=== PATIENT | female | born 1960 | race Caucasian/White ===

== ENCOUNTER 2024-02-03 11:11 | Inpatient (IN) | payer MEDICARE, OTHER ==
[2024-02-03] MEDS ORDERED: Iopamidol 300 61% 100 ML VIAL FS ONE (11:13)
[2024-02-03] MEDS ORDERED: cefTRIAXone (ROCEPHIN) 2 GM VIAL ONE (12:08)
[2024-02-03 12:13] LABS: Hematocrit 34.4 % (34.9-44.5); Hemoglobin 10.4 g/dL (12.0-15.5); Mean Corpuscular HGB CONC 30.2 g/dL (32.0-36.0); Mean Corpuscular Hemoglobin 21.9 pg (27.0-33.0); Mean Corpuscular Volume 72.6 fL (81.6-98.3); Mean Platelet Volume 9.5 fL (7.4-10.4); Platelet Count 515 10x3/uL (150-450); RBC Distribution Width 17.3 % (11.5-14.5); Red Blood Cell (RBC) Count 4.74 10x6/uL (3.90-5.03); White Blood Cell (WBC) Count 27.2 10x3/uL (3.5-10.5)
[2024-02-03 12:29] LABS: ALT (SGPT) 13 U/L (8-55); AST (SGOT) 19 U/L (5-34); Albumin 3.4 g/dL (3.4-4.8); Alkaline Phosphatase 101 U/L (40-110); Anion Gap 18 mmol/L (10-20); BUN (Urea Nitrogen) 26 mg/dL (9.8-20.1); Bilirubin, Total 0.5 mg/dL (0.2-1.2); Calc. Creatinine Clearance 0 mL/min (70-130); Calcium 9.6 mg/dL (7.8-10.44); Carbon Dioxide 21 mmol/L (23-31); Chloride 96 mmol/L (98-107); Estimated GFR 73; Globulin 4.8 g/dL (2.4-3.5); Glucose 132 mg/dL (80-115); Potassium 4.4 mmol/L (3.5-5.1); Protein, Total 8.2 g/dL (5.8-8.1); Sodium 131 mmol/L (136-145)
[2024-02-03 12:47] LABS: Bilirubin Neg (Negative); Blood, Urine 150 (Negative); Glucose, Urine (Dipstick) Normal (Negative); Ketone, Urine 5 mg/dL (Negative); Leukocyte 25 (Negative); Nitrite Negative (Negative); Protein, Urine (Dipstick) 100 mg/dl (Neg-Trace); Specific Gravity, Urine 1.025 (1.005-1.030)
[2024-02-03 13:21] LABS: MDiff Complete? YES
[2024-02-03 13:22] LABS: CAUTI Indications for Culture Pelvic or flank pain; Clarity Cloudy (Clear); RBC/HPF Greater than 50 HPF (0-3); Squamous Epithelial Greater than 50 HPF (0-3)
[2024-02-03 13:23] LABS: Bacteria/HPF 1+ HPF (None Seen); Mucous/LPF 3+ LPF (<2+)
[2024-02-03 13:23] LABS: Band 2 % (5-11); Lymphocytes 6 % (21-51); Monocytes 4 % (0-10); Neutrophil 88 % (42-75)
[2024-02-03 13:24] LABS: Urine Culture Reflex Yes Yes
[2024-02-03 13:24] LABS: Anisocytosis SLIGHT = 6-15 cells (100X) (0-5/hpf); Microcytosis SLIGHT = 6-15 cells (100X) (0-5/hpf)
[2024-02-03 13:25] LABS: Platelet Adequacy Comment Appears Increased
[2024-02-03] MEDS ORDERED: Ondansetron PF 4 MG/2 ML Vial ONE (14:32)
[2024-02-03] MEDS ORDERED: HYDROmorphone 0.5 MG/0.5 ML SYRINGE ONE ×2 (14:32→20:19)
[2024-02-03] MEDS ORDERED: Piperacillin/Tazobactam 3.375 GM VIAL ONE (15:02)
[2024-02-03] MEDS ORDERED: Fentanyl 250 MCG/5 ML VIAL ONE ×2 (16:14→20:26)
[2024-02-03] MEDS ORDERED: PROPOFOL 20 ML ONE (16:14)
[2024-02-03] MEDS ORDERED: Lidocaine 1% PF 5 ML VIAL ONE (16:15)
[2024-02-03] MEDS ORDERED: SUCCINYLCHOLINE/SOD CL,ISO/PF 200 MG/10 ML SYRINGE FS ONE ×2 (16:17→19:49)
[2024-02-03] MEDS ORDERED: Rocuronium Bromide 10 MG/ML (10ML VIAL) ONE (16:17)
[2024-02-03] MEDS ORDERED: Albumin 5% 500 ML ONE (16:20)
[2024-02-03] MEDS ORDERED: fentaNYL 50 mcg/mL 1 mL Vial ONE (19:07)
[2024-02-03] MEDS ORDERED: SUGAMMADEX SODIUM 200 MG/2 ML VIAL ONE (19:40)
[2024-02-03] MEDS ORDERED: Sodium Chloride For Inhalation 0.9% 3 ML NEB ONE (20:13)
[2024-02-03] MEDS ORDERED: Racepinephrine 2.25% 0.5 ML NEB ONE (20:13)
[2024-02-03] MEDS: Ipratropium/Albuterol 3 ML NEB NEB PRN (20:15)
[2024-02-03] MEDS ORDERED: hydrALAZINE 20 MG/ML VIAL SLOW IVP PRN (20:16)
[2024-02-03] MEDS ORDERED: Ondansetron PF 4 MG/2 ML Vial IVP PRN ×2 (20:16→22:06)
[2024-02-03] MEDS ORDERED: Ondansetron ODT 4 MG TAB PO PRN (20:16)
[2024-02-03] MEDS ORDERED: Dexamethasone 4 mg/ml Vial ONE (20:29)
[2024-02-03] MEDS ORDERED: HYDROmorphone 2 MG/ML VIAL SLOW IVP PRN (20:36)
[2024-02-03] MEDS ORDERED: Promethazine HCl 25 MG/ML VIAL IM PRN ×2 (20:36→22:06)
[2024-02-03] MEDS ORDERED: Ondansetron HCl/PF 4 MG/2 ML Vial IVP PRN (20:36)
[2024-02-03] MEDS ORDERED: Ipratropium/Albuterol 3 ML NEB NEB PRN (21:13)
[2024-02-03] MEDS ORDERED: Naloxone HCl 0.4 mg/ml Vial IV PRN (22:06)
[2024-02-03] MEDS ORDERED: diphenhydrAMINE 25 MG CAP PO PRN (22:06)
[2024-02-03] MEDS ORDERED: diphenhydrAMINE 50 MG/ML VIAL IM PRN (22:06)
[2024-02-03] MEDS ORDERED: diphenhydrAMINE 50 MG/ML VIAL IVP PRN (22:06)
[2024-02-03] MEDS ORDERED: FENTANYL 500 MCG/10 ML VIAL 2,000 MCG in Sodium Chloride 0.9% 60 ML IV PRN (22:06)
[2024-02-03] MEDS ORDERED: FENTANYL IV PRN (22:15)
[2024-02-03] MEDS ORDERED: SODIUM CHLORIDE 0.9% IV PRN (22:15)
[2024-02-03] MEDS ORDERED: Communication Order-Pharmacy FS SCH (22:15)
[2024-02-03] MEDS: Sodium Chloride 0.9% 1,000 ML IV SCH (23:16)
[2024-02-04] MEDS: Etomidate 40 MG (20 mL) VIAL ONE (00:58)
[2024-02-04] MEDS: Etomidate 40 MG (20 mL) VIAL FS SCH (00:58)
[2024-02-04] MEDS: Ketorolac Tromethamine 30 MG (1 mL) VIAL IVP SCH (01:15)
[2024-02-04] MEDS: Piperacillin/Tazobactam 3.375 GM in Sodium Chloride 0.9% 100 ML IVPB SCH ×2 (01:15→02:03)
[2024-02-04] MEDS: Pantoprazole 40 MG VIAL IVP SCH ×3 (01:16→09:51)
[2024-02-04] MEDS: Enoxaparin 40 MG (0.4 mL) SYRINGE SC SCH ×2 (01:16→02:02)
[2024-02-04 06:45] LABS: #Basophils 0.01 10x3/uL (0.0-0.2); #Monocytes 0.29 10x3/uL (0.0-1.1); #Neutrophils 10.73 10x3/uL (1.5-8.4); %Basophils 0.1 % (0.0-2.0); %Lymphocytes 4.2 % (18.0-47.0); %Monocytes 2.5 % (0.0-10.0); %Neutrophils 92.9 % (40.0-75.0); Hematocrit 25.9 % (34.9-44.5); Hemoglobin 7.9 g/dL (12.0-15.5); Mean Corpuscular HGB CONC 30.5 g/dL (32.0-36.0); Mean Corpuscular Hemoglobin 22.4 pg (27.0-33.0); Mean Corpuscular Volume 73.4 fL (81.6-98.3); Mean Platelet Volume 9.3 fL (7.4-10.4); Platelet Count 347 10x3/uL (150-450); RBC Distribution Width 17.5 % (11.5-14.5); Red Blood Cell (RBC) Count 3.53 10x6/uL (3.90-5.03); White Blood Cell (WBC) Count 11.5 10x3/uL (3.5-10.5)
[2024-02-04 07:41] LABS: ALT (SGPT) 13 U/L (8-55); AST (SGOT) 22 U/L (5-34); Albumin 2.5 g/dL (3.4-4.8); Alkaline Phosphatase 68 U/L (40-110); Anion Gap 13 mmol/L (10-20); BUN (Urea Nitrogen) 18 mg/dL (9.8-20.1); Bilirubin, Total 0.3 mg/dL (0.2-1.2); Calc. Creatinine Clearance 80 mL/min (70-130); Calcium 7.8 mg/dL (7.8-10.44); Carbon Dioxide 20 mmol/L (23-31); Chloride 108 mmol/L (98-107); Estimated GFR 100; Globulin 3.1 g/dL (2.4-3.5); Glucose 120 mg/dL (80-115); Potassium 4.2 mmol/L (3.5-5.1); Protein, Total 5.6 g/dL (5.8-8.1); Sodium 137 mmol/L (136-145)
[2024-02-04 12:27] LABS: #Monocytes 0.43 10x3/uL (0.0-1.1); #Neutrophils 10.42 10x3/uL (1.5-8.4); %Lymphocytes 5.5 % (18.0-47.0); %Monocytes 3.7 % (0.0-10.0); %Neutrophils 90.5 % (40.0-75.0); Hematocrit 24.8 % (34.9-44.5); Hemoglobin 7.3 g/dL (12.0-15.5); Mean Corpuscular HGB CONC 29.4 g/dL (32.0-36.0); Mean Corpuscular Hemoglobin 21.9 pg (27.0-33.0); Mean Corpuscular Volume 74.3 fL (81.6-98.3); Mean Platelet Volume 8.7 fL (7.4-10.4); Platelet Count 295 10x3/uL (150-450); RBC Distribution Width 17.5 % (11.5-14.5); Red Blood Cell (RBC) Count 3.34 10x6/uL (3.90-5.03); White Blood Cell (WBC) Count 11.5 10x3/uL (3.5-10.5)
[2024-02-04] MEDS: Acetaminophen 500 MG TAB PO SCH (17:16)
[2024-02-04] MEDS: Sodium Chloride 0.9% 1,000 ML IV SCH (17:16)
[2024-02-05 04:47] LABS: #Basophils 0.01 10x3/uL (0.0-0.2); #Monocytes 0.55 10x3/uL (0.0-1.1); #Neutrophils 9.88 10x3/uL (1.5-8.4); %Basophils 0.1 % (0.0-2.0); %Lymphocytes 8.6 % (18.0-47.0); %Monocytes 4.8 % (0.0-10.0); Hematocrit 23.4 % (34.9-44.5); Mean Corpuscular HGB CONC 29.9 g/dL (32.0-36.0); Mean Corpuscular Hemoglobin 22.2 pg (27.0-33.0); Mean Corpuscular Volume 74.3 fL (81.6-98.3); Mean Platelet Volume 9.1 fL (7.4-10.4); Platelet Count 325 10x3/uL (150-450); RBC Distribution Width 17.7 % (11.5-14.5); Red Blood Cell (RBC) Count 3.15 10x6/uL (3.90-5.03); White Blood Cell (WBC) Count 11.5 10x3/uL (3.5-10.5)
[2024-02-05 05:07] LABS: Anion Gap 12 mmol/L (10-20); BUN (Urea Nitrogen) 19 mg/dL (9.8-20.1); Calc. Creatinine Clearance 79 mL/min (70-130); Carbon Dioxide 21 mmol/L (23-31); Chloride 110 mmol/L (98-107); Potassium 3.9 mmol/L (3.5-5.1); Sodium 139 mmol/L (136-145)
[2024-02-05 05:08] LABS: ALT (SGPT) 12 U/L (8-55); AST (SGOT) 19 U/L (5-34); Albumin 2.4 g/dL (3.4-4.8); Alkaline Phosphatase 58 U/L (40-110); Bilirubin, Total 0.2 mg/dL (0.2-1.2); Calcium 8.2 mg/dL (7.8-10.44); Estimated GFR 99; Globulin 3.3 g/dL (2.4-3.5); Glucose 94 mg/dL (80-115); Protein, Total 5.7 g/dL (5.8-8.1)
[2024-02-05] MEDS: Multivitamin W/ Minerals 1 TAB PO SCH (10:09)
[2024-02-05] MEDS: Nicotine 21 MG PATCH TD SCH (10:09)
[2024-02-05] MEDS ORDERED: traMADol HCl 50 MG TAB PO PRN (14:43)
[2024-02-05] MEDS ORDERED: Loratadine 10 MG TAB PO PRN (16:06)
[2024-02-05] MEDS ORDERED: Pseudoephedrine HCl 30 MG TAB PO PRN (16:07)
[2024-02-05] MEDS: Ipratropium/Albuterol 3 ML NEB NEB SCH (19:44)
[2024-02-06 03:52] LABS: #Basophils 0.01 10x3/uL (0.0-0.2); #Eosinphils 0.08 10x3/uL (0.0-0.5); #Monocytes 0.54 10x3/uL (0.0-1.1); #Neutrophils 6.63 10x3/uL (1.5-8.4); %Basophils 0.1 % (0.0-2.0); %Eosinophils 0.9 % (0.0-6.0); %Lymphocytes 19.3 % (18.0-47.0); %Neutrophils 73.3 % (40.0-75.0); Hematocrit 24.9 % (34.9-44.5); Hemoglobin 7.3 g/dL (12.0-15.5); Mean Corpuscular HGB CONC 29.3 g/dL (32.0-36.0); Mean Corpuscular Hemoglobin 21.7 pg (27.0-33.0); Mean Corpuscular Volume 74.1 fL (81.6-98.3); Mean Platelet Volume 8.7 fL (7.4-10.4); Platelet Count 328 10x3/uL (150-450); RBC Distribution Width 17.3 % (11.5-14.5); Red Blood Cell (RBC) Count 3.36 10x6/uL (3.90-5.03); White Blood Cell (WBC) Count 9.1 10x3/uL (3.5-10.5)
[2024-02-06] MEDS ORDERED: Pseudoephedrine HCl 30 MG TAB PO PRN (08:36)
[2024-02-06] MEDS: Pantoprazole DR 40 MG TAB PO SCH (09:18)
[2024-02-06] MEDS ORDERED: Ibuprofen 200 MG TAB PO PRN (12:00)
[2024-02-06] MEDS: Amoxicillin/Potassium Clav 875 MG TAB PO SCH ×2 (12:03→15:30)
[2024-02-06] MEDS: Polyethylene Glycol 3350 17 GM Packet PO SCH (12:57)
[2024-02-06] MEDS: Albuterol 2.5 MG (3 mL) NEB NEB PRN (14:40)
[2024-02-06 16:39] VITALS: BP 168/82; TEMP 98
[2024-02-06] MEDS ORDERED: Amoxicillin/Potassium Clav 875 MG TAB PO SCH (21:00)
[2024-02-07] MEDS ORDERED: Multivit, Therapeutic 1 TAB PO SCH (09:00)
[2024-02-07] MEDS ORDERED: Metamucil PACK PO SCH (09:00)
== END 2024-02-06 16:30 | disposition home or self-care (01) | DRG 330 ==
LOC: CSHERS 11:11 → CSHSDC/OP 17:45 → CSHTELE 21:11
PROVIDERS: ADMIT Specialist; ATTEND Specialist
PROC: 0DTF0ZZ Resection of Right Large Intestine, Open Approach (ICD-10-PCS; principal; 2024-02-03)
PROC: 0WBF0ZZ Excision of Abdominal Wall, Open Approach (ICD-10-PCS; 2024-02-03)
DX: C18.0 Malignant neoplasm of cecum (principal); K56.609 Unspecified intestinal obstruction, unspecified as to partial versus complete obstruction; K37 Unspecified appendicitis; F17.210 Nicotine dependence, cigarettes, uncomplicated; E86.0 Dehydration; D64.9 Anemia, unspecified; K63.89 Other specified diseases of intestine; J43.9 Emphysema, unspecified; Z88.2 Allergy status to sulfonamides; Z79.899 Other long term (current) drug therapy; Z98.51 Tubal ligation status
CPT/HCPCS: 36415; 71045; 74177; 80053; 81001; 82378; 83605; 83880; 85025; 86850; 86900; 86901; 87040; 87077; 87086; 87186; 93005; 94640; 94660; 94760; 94762; C1713; C1751; C1889; J0696; J1100; J1170; J1650; J1885; J2405; J2470; J2543; J2704; J3010; J7030; J7611; J7620; P9045; Q9967

== ENCOUNTER 2024-04-12 09:02 | Outpatient (CLI) | payer MEDICARE, OTHER ==
[2024-04-12] MEDS ORDERED: Iopamidol 370 76% 100 ML VIAL ONE (09:48)
== END 2024-04-12 09:03 | disposition home or self-care (01) ==
LOC: CSHCT 09:02
PROVIDERS: ATTEND Internal Medicine Cardiovascular Disease
DX: I73.9 Peripheral vascular disease, unspecified (principal); I70.90 Unspecified atherosclerosis
CPT/HCPCS: 70498; 80053; 82248; 82378; 82565; 82728; 83540; 83550; 83615; 84100; 84550; Q9967